=== PATIENT | male | born 1960 | race Caucasian/White ===

== ENCOUNTER 2025-05-06 11:30 | Outpatient (REF) | payer OTHER, SELFPAY ==
[2025-05-07 06:43] LABS: Lyme Abs Screen <0.90 index
== END 2025-05-06 11:31 ==
LOC: HO.MANLDS 11:30
PROVIDERS: Visit Provider Internal Medicine
DX: S70.361A Insect bite (nonvenomous), right thigh, initial encounter (principal); W57.XXXA Bitten or stung by nonvenomous insect and other nonvenomous arthropods, initial encounter
CPT/HCPCS: 36415; 86617; 86618; 86666; 86753